=== PATIENT | female | born 1985 | race Caucasian/White ===

== ENCOUNTER 2017-05-21 00:01 | Inpatient (IN) | payer OTHER ==
[~2017-05-21] VITALS: Ht 167.6 cm; Wt 123.0 kg
[~2017-05-21 00:01] MED LIST: ACETAMINOPHEN325 M1 PO; CRANBERRY300 MG PO; FLAGYL500 MG PO; FLEXERIL10 MG PO; I-CAPS WITH LU1 EACH PO; METHOCARBAMOL500 MG PO; METROGEL60 GM TOP; METRONIDAZOLE500 MG PO; NAPROXEN500 MG PO; NORCO 5-325 TA1 EACH PO; PEPCID20 MG PO; PRENA1 CHEW TA1.4 MG PO; TENEX1 MG PO; ZOFRAN4 MG PO
--- NOTE | 2017-05-22 08:36 | PR ---
[facility] [address] [facility] [place] [address] Signed PP Progress Notes Datetime Report Generated by MALLY: 05/22/2017 08:36 SUBJECTIVE: [id number] Pain: Within normal limits Vital Signs: [id number] Vital Signs: Reviewed; Within Normal Limits EXAM: [id number] Cardiovascular: Not Done Respiratory: Not Done Abdomen/Uterus: Abnormal Lochia: Normal Vulva/Perineum: Not Done Breasts: Not Done CVA Tenderness: Not Done Extremities: Normal Incision: Not Applicable Progress: Normal Exam Comments: Fundus firm, NT @ U. H/H 12.4/35.9, WBC 13.4, plat 206k IMPRESSION/PLAN/PROCEDURES: [id number] Impression: Normal progression Plan: Continue present management Procedures: None Progress Notes: Doing well. Will continue current management. Signing Physician: Mine Emmanuel MD CC: *Electronically Signed* 05/22/17 0836 MINE EMMANUEL MD PATIENT NAME: MARK LEYVA PROGRESS NOTE DATE OF : 87 PHYSICIAN: MINE EMMANUEL MD RPT #: [id number] REPORT IS CONFIDENTIAL AND NOT TO BE RELEASED WITHOUT AUTHORIZATION
--- NOTE | 2017-05-23 09:40 | PR ---
[facility] [address] [facility] [place] [address] Signed PP Progress Notes Datetime Report Generated by CPN: 05/23/2017 09:39 SUBJECTIVE: [id number] Pain: Within normal limits Vital Signs: [id number] Vital Signs: Reviewed; Within Normal Limits EXAM: [id number] Cardiovascular: Not Done Respiratory: Not Done Abdomen/Uterus: Abnormal Lochia: Normal Vulva/Perineum: Not Done Breasts: Not Done CVA Tenderness: Not Done Extremities: Abnormal Incision: Not Applicable Progress: Normal Exam Comments: Fundus firm, NT @ U. 2+ LE edema. IMPRESSION/PLAN/PROCEDURES: [id number] Impression: Normal progression Plan: Discharge Procedures: None Progress Notes: Doing well. She is ready for D/C. Signing Physician: Mine Emmanuel MD CC: *Electronically Signed* 05/23/17 0939 MINE EMMANUEL MD PATIENT NAME: MARK LEYVA PROGRESS NOTE DATE OF : 87 PHYSICIAN: MINE EMMANUEL MD RPT #: [id number] REPORT IS CONFIDENTIAL AND NOT TO BE RELEASED WITHOUT AUTHORIZATION
== END 2017-05-23 12:50 | disposition home or self-care (01) | DRG 775 ==
LOC: FBC 00:01 → FBCO 05-27 10:12 → EDSTATUS 05-27 15:29
PROVIDERS: ADMIT Obstetrics & Gynecology
PROC: 10E0XZZ Delivery of Products of Conception, External Approach (ICD-10-PCS; principal; 2017-05-21)
PROC: 0KQM0ZZ Repair Perineum Muscle, Open Approach (ICD-10-PCS; 2017-05-21)
PROC: 10907ZC Drainage of Amniotic Fluid, Therapeutic from Products of Conception, Via Natural or Artificial Opening (ICD-10-PCS; 2017-05-21)
PROC: 0W8NXZZ Division of Female Perineum, External Approach (ICD-10-PCS; 2017-05-21)
PROC: 00HU33Z Insertion of Infusion Device into Spinal Canal, Percutaneous Approach (ICD-10-PCS; 2017-05-21)
PROC: 3E0R3CZ (ICD-10-PCS; 2017-05-21)
DX: O66.0 Obstructed labor due to shoulder dystocia (principal); O70.1 Second degree perineal laceration during delivery; O69.1XX0 Labor and delivery complicated by cord around neck, with compression, not applicable or unspecified; Z37.0 Single live birth; Z3A.39 39 weeks gestation of pregnancy; O99.214 Obesity complicating childbirth; E66.01 Morbid (severe) obesity due to excess calories
CPT/HCPCS: 01960; 36415; 82803; 85027; 87088; J1644; J2405; J2590; J2795; J3105; J7120

== ENCOUNTER 2017-09-14 19:19 | Emergency (ER) | payer OTHER ==
[~2017-09-14] VITALS: Ht 167.6 cm; Wt 121.1 kg
[2017-09-14] MEDS ORDERED: IBUPROFEN600 MG PO (19:43)
[2017-09-14] MEDS ORDERED: CELEXA20 MG PO (19:43)
== END 2017-09-14 21:10 | disposition home or self-care (01) ==
LOC: ED 19:19
DX: S70.312A Abrasion, left thigh, initial encounter (principal); F19.10 Other psychoactive substance abuse, uncomplicated; F32.9 Major depressive disorder, single episode, unspecified; F31.9 Bipolar disorder, unspecified; F43.10 Post-traumatic stress disorder, unspecified; F41.9 Anxiety disorder, unspecified; F17.200 Nicotine dependence, unspecified, uncomplicated; Z88.0 Allergy status to penicillin; X78.1XXA Intentional self-harm by knife, initial encounter
CPT/HCPCS: 80053; 80176; 81001; 84443; 84703; 85025; 87088; 99283; G0480

== ENCOUNTER 2018-03-28 16:16 | Emergency (ER) | payer OTHER ==
[~2018-03-28] VITALS: Ht 167.6 cm; Wt 121.1 kg
[~2018-03-28 16:16] MED LIST changes: +CELEXA20 MG PO; +IBUPROFEN600 MG PO
[2018-03-28] MEDS ORDERED: IMPLANON (16:27)
== END 2018-03-28 16:52 | disposition home or self-care (01) ==
LOC: ED 16:16
DX: J02.9 Acute pharyngitis, unspecified (principal)

== ENCOUNTER 2018-12-24 20:37 | Emergency (ER) | payer OTHER ==
[~2018-12-24] VITALS: Ht 167.6 cm; Wt 121.1 kg
--- OUTSIDE RECORDS SUMMARY | ~2018-12-24 | XMS | Clinical Summary ---
Demographics + + + | Address | [address] | | | [place] [address] | + + + | Home Phone | | + + + | Preferred Language | Unknown | + + + | Marital Status | Single | + + + | Alevism Affiliation | 1013 | + + + | Race | Unknown | + + + | Ethnic Group | Unknown | + + + Author + + + | Author | [facility] | | | and [place] | + + + | Organization | [facility] | | | and [place] | + + + | Address | Unknown | + + + | Phone | Unavailable | + + + Support + + + + + | Name | Relationship | Address | Phone | + + + + + | Lainey England | ECON | [address] | | | | | [place] | | | | | [address] | | + + + + + Care Team Providers + +------+ + | Care Zinc Plater Name | Role | Phone | + +------+ + | Niraj Billy | PP | Unavailable | + +------+ + Allergies + + + +--------+ + | Active Allergy | Reactions | Severity | Noted | Comments | | | | | Date | | + + + +--------+ + | Penicillins | Hives | | | | + + + +--------+ + Current Medications + + +-------+---------+------+------+-------+ | Prescription | Sig. | Disp. | Refills | Star | End | Statu | | | | | | t | Date | s | | | | | | Date | | | + + +-------+---------+------+------+-------+ | Levonorgestrel | by Intrauterine | | | | | Activ | | (MIRENA IU) | route. | | | | | e | + + +-------+---------+------+------+-------+ | fluticasone | Inhale 2 puffs into | | | | | Activ | | (FLOVENT HFA) 110 | the lungs 2 times | | | | | e | | mcg/puff inhaler | daily. | | | | | | + + +-------+---------+------+------+-------+ | albuterol | Inhale 1 puff into | | | | | Activ | | (VENTOLIN HFA) 90 | the lungs every 6 | | | | | e | | mcg/puff inhaler | hours as needed. | | | | | | + + +-------+---------+------+------+-------+ | methocarbamol | Take 750 mg by mouth | | | | | Activ | | (ROBAXIN) 750 mg | 3 times daily. | | | | | e | | tablet | | | | | | | + + +-------+---------+------+------+-------+ | Respiratory | by Does not apply | | | | | Activ | | Therapy Supplies | route. | | | | | e | | (NEBULIZER) JAIME | | | | | | | + + +-------+---------+------+------+-------+ | | Take 1 tablet by | | | | | Activ | | HYDROcodone-acetamin | mouth every 6 hours | | | | | e | | ophen (NORCO) 5-325 | as needed for Pain. | | | | | | | mg per tablet | | | | | | | + + +-------+---------+------+------+-------+ | albuterol (PROAIR | Inhale 2 puffs into | | | | | Activ | | HFA) 90 mcg/puff | the lungs EVERY 4 TO | | | | | e | | inhaler | 6 HOURS NEEDED | | | | | | | | for Wheezing. | | | | | | + + +-------+---------+------+------+-------+ | traZODone | Take 50 mg by mouth | | | | | Activ | | (DESYREL) 50 mg | nightly. | | | | | e | | tablet | | | | | | | + + +-------+---------+------+------+-------+ Active Problems + + + | Problem | Noted Date | + + + | Unspecified viral hepatitis C without hepatic coma | | + + + + + | Overview: ICD-10 Record update | + + + +---+ | Bipolar I disorder (HCC) | | + +---+ Family History + + +--------+ + | Medical History | Relation | Name | Comments | + + +--------+ + | Cancer | Father | | | + + +--------+ + | Hypertension | Father | | | + + +--------+ + | Ovarian cancer | Maternal | | | | | Grandmoth | | | | | er | | | + + +--------+ + | Asthma | Mother | | | + + +--------+ + | Other (see comment) | Mother | | Sleep apnea. Also: had twins with 1 dying | | | | | inutero. | + + +--------+ + | Breast cancer | Other | Great | | | | | MGM | | + + +--------+ + | Cancer | Paternal | | skin cancer | | | Grandmoth | | | | | er | | | + + +--------+ + | Heart disease | Sister | | heart problems during | + + +--------+ + | Other (see comment) | Sister | | sleep apnea | + + +--------+ + | Asthma | Sister | | | + + +--------+ + + + +--------+ + | Relation | Name | Status | Comments | + + +--------+ + | Father | | Alive | | + + +--------+ + | Maternal Grandmother | | | | + + +--------+ + | Mother | | Alive | | + + +--------+ + | Other | Great MGM | | | + + +--------+ + | Paternal Grandmother | | | | + + +--------+ + | Sister | | Alive | | + + +--------+ + | Sister | | | | + + +--------+ + Social History + +-------+ +--------+------+ | Tobacco Use | Types | Packs/Day | Years | Date | | | | | Used | | + +-------+ +--------+------+ | Former Smoker | | | | | + +-------+ +--------+------+ + +---+---+---+ | Smokeless Tobacco: | | | | | Never Used | | | | + +---+---+---+ + + | Comments: quit smoking for | + + + + +---------+ + | Alcohol Use | Drinks/We | oz/Week | Comments | | | ek | | | + + +---------+ + | No | | | quit one year ago | + + +---------+ + + + + | Sex Assigned at | Date Recorded | | | | + + + | Not on file | | + + + Last Filed Vital Signs + + + + | Vital Sign | Reading | Time Taken | + + + + | Blood Pressure | 114/74 | 11/29/20149 PST | + + + + | Pulse | 90 | 11/29/20149 PST | + + + + | Temperature | 36.7 C (98 F) | 11/29/20141138 PST | + + + + | Respiratory Rate | 16 | 11/29/20141138 PST | + + + + | Oxygen Saturation | - | - | + + + + | Inhaled Oxygen | - | - | | Concentration | | | + + + + | Weight | 112 kg (247 lb) | 11/29/20141138 PST | + + + + | Height | 165.1 cm (5' 5") | 11/29/20141138 PST | + + + + | Body Mass Index | 41.1 | 11/29/2014 1139 PST | + + + + Plan of Treatment + + + + + | Health Maintenance | Due Date | Last Done | Comments | + + + + + | Vaccine: | | | | | Dtap/Tdap/Td (1 - | 6 | | | | Tdap) | | | | + + + + + | Cervical Cancer | | | | | Screening (Pap) | 7 | | | + + + + + | Vaccine: Influenza | | | | | (#1) | 8 | | | + + + + + Results Not on filefrom Last 3 Months Insurance + +--------+ +--------+ +---------+ | Payer | Benefi | Subscriber | Type | Phone | Address | | | t Plan | ID | | | | | | / | | | | | | | Group | | | | | + +--------+ +--------+ +---------+ | [employer] | MODA | [id number] | Medica | +- | | | MEDICAID HMO | HEALTH | | id | [address]21 | | | | MDCD | | | | | | | [place]MO [place] | | | | | + +--------+ +--------+ +---------+ + +--------+ +--------+ + + | Guarantor Name | Accoun | Relation to | Date | Phone | Billing Address | | | t Type | Patient | of | | | | | | | | | | + +--------+ +--------+ + + | MARK ENGLAND | Person | Self [birth year] Home: | [address] | | [place] | stephanie/Paddy | | 1985 | [phone] | [place], | | | [place] | | | [address] | [place] [address] | + +--------+ +--------+ + +
--- OUTSIDE RECORDS SUMMARY | ~2018-12-24 | XMS | Clinical Summary ---
Demographics + + + | Address | [address] | | | [place] [address] | + + + | Home Phone | | + + + | Preferred Language | Unknown | + + + | Marital Status | Single | + + + | Anabaptism Affiliation | 1013 | + + + | Race | Unknown | + + + | Ethnic Group | Unknown | + + + Author + + + | Author | [facility] | | | and [place] | + + + | Organization | [facility] | | | [...] [place] | | | | | [address] | | + + + + + Care Team Providers + +------+ + | Care Change Management Manager Name | Role | Phone | + [...] | [employer] | MODA | [id number] | Medica | +- | | | [...] [place] | | | [address] | [place] [address] | + +--------+ +--------+ + +
[~2018-12-24 20:37] MED LIST changes: +IMPLANON
--- OUTSIDE RECORDS SUMMARY | 2018-12-24 20:40 | XMS ---
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 [facility] has contacted client and client has declined any services at this time. Please provide education to the patient on the scope and purpose of the ED as an acute care provider not a Primary Care Provider and should not be utilized for chronic conditions. Please refer client back to Community Health WorkerChelsey with [facility] at [phone] or [phone], if clientreturns to ED. E.D. VISIT COUNT (12 MO.) 2 [facility] TOTAL 2 NOTE: Visits indicate total known visits. ED/UCC VISIT TRACKING (12 MO.) 12/24/2018 20:37 [facility] [place] TYPE: Emergency COMPLAINT: - FINGER LAC 03/28/2018 16:17 [facility] [place] TYPE: Emergency COMPLAINT: - SORE THROAT DIAGNOSES: - Acute pharyngitis, unspecified INPATIENT VISIT TRACKING (12 MO.) No inpatient visits to display in this time frame [id number]
[2018-12-24] MEDS ORDERED: LATUDA40 MG PO (20:52)
== END 2018-12-24 21:49 | disposition home or self-care (01) ==
LOC: ED 20:37
DX: S61.012A Laceration without foreign body of left thumb without damage to nail, initial encounter (principal); W26.0XXA Contact with knife, initial encounter; F32.9 Major depressive disorder, single episode, unspecified; F31.9 Bipolar disorder, unspecified; F43.10 Post-traumatic stress disorder, unspecified; F17.200 Nicotine dependence, unspecified, uncomplicated; Z88.0 Allergy status to penicillin; Z79.899 Other long term (current) drug therapy
CPT/HCPCS: 12001; 99282-25

== ENCOUNTER 2019-03-21 18:07 | Emergency (ER) | payer OTHER ==
[~2019-03-21] VITALS: Ht 167.6 cm; Wt 138.3 kg
[~2019-03-21 18:07] MED LIST changes: +LATUDA40 MG PO
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
[2019-03-21] MEDS ORDERED: PARAGARD T 3801 EACH IY (18:24)
== END 2019-03-21 20:56 | disposition home or self-care (01) ==
LOC: ED 18:07
DX: N93.9 Abnormal uterine and vaginal bleeding, unspecified (principal); Z90.49 Acquired absence of other specified parts of digestive tract; Z88.0 Allergy status to penicillin
CPT/HCPCS: 80048; 81001; 84702; 85025; 96361; 96374; 99284-25; J1885; J7030

== ENCOUNTER 2021-01-12 17:12 | Emergency (ER) | payer OTHER ==
[~2021-01-12] VITALS: Ht 167.6 cm; Wt 133.8 kg
[~2021-01-12 17:12] MED LIST changes: +HYDROXYZINE HCL25 MG PO; +PARAGARD T 3801 EACH IY
--- OUTSIDE RECORDS SUMMARY | 2021-01-12 17:16 | XMS ---
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 E.D. VISIT COUNT (12 MO.) [address] [place] [address] TOTAL 1 NOTE: Visits indicate total known visits. ED/UCC VISIT TRACKING (12 MO.) 01/12/2021 17:14 [facility] [place] TYPE: Emergency COMPLAINT: - SWOLLEN FEET, NUMBNESS INPATIENT VISIT TRACKING (12 MO.) No inpatient visits to display in this time frame [email or web address]
[2021-01-12] MEDS ORDERED: METHOCARBAMOL750 MG PO (17:29)
[2021-01-12] MEDS ORDERED: LASIX20 MG PO (18:26)
[2021-01-12] MEDS ORDERED: K-TAB ER20 MEQ PO (18:26)
[2021-01-12] MEDS ORDERED: MAGNESIUM250 MG PO (18:26)
== END 2021-01-12 18:38 | disposition home or self-care (01) ==
LOC: ED 17:12
DX: R60.0 Localized edema (principal); F17.200 Nicotine dependence, unspecified, uncomplicated; Z88.0 Allergy status to penicillin; Z79.899 Other long term (current) drug therapy
CPT/HCPCS: 80053; 83735; 85025; 99284

== ENCOUNTER 2021-04-30 17:11 | Emergency (ER) | payer OTHER ==
[~2021-04-30] VITALS: Ht 167.6 cm; Wt 127.0 kg
[~2021-04-30 17:11] MED LIST changes: +K-TAB ER20 MEQ PO; +LASIX20 MG PO; +MAGNESIUM250 MG PO; +METHOCARBAMOL750 MG PO
--- NOTE | 2021-05-03 08:59 | EKG ---
[facility] [address] [facility] [place], [place] [address] Signed Normal sinus rhythm Normal ECG No previous ECGs available Confirmed by SHILO MINOR MD ([id number]) on 05/03/2021 8:59:10 AM Electronically Signed By: SHILO MINOR MD 05/03/21 0859 PATIENT NAME: MARK LEYVA Electrocardiogram DATE OF : 87 PHYSICIAN: SHILO MINOR MD REPORT #: [id number] REPORT IS CONFIDENTIAL AND NOT TO BE RELEASED WITHOUT AUTHORIZATION
== END 2021-04-30 19:33 | disposition left against medical advice (07) ==
LOC: ED 17:11
DX: Z53.21 Procedure and treatment not carried out due to patient leaving prior to being seen by health care provider (principal)
CPT/HCPCS: 93005; 93010

== ENCOUNTER 2021-05-02 02:48 | Emergency (ER) | payer OTHER ==
[~2021-05-02] VITALS: Ht 167.6 cm; Wt 122.5 kg
--- OUTSIDE RECORDS SUMMARY | 2021-05-02 02:50 | XMS ---
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 CRITERIA MET - [facility] - 2 Visits in 30 Days CARE PROVIDERS KAYLI FUNK [facility] Current PHONE: [phone] ESEQUIEL LONGORIA Physician 02/27/2021-Current PHONE: [phone] Care Guidelines exist for the following facilities: [employer] [facility] ( 11/11/2020 ) [facility] ( 04/03/2019 ) [facility] VISIT COUNT (12 MO.) [address] [facility] [place] TOTAL 4 NOTE: Visits indicate total known visits. ED/UCC VISIT TRACKING (12 MO.) 05/02/2021 02:49 [facility] [place] TYPE: Emergency COMPLAINT: - CHEST PAIN 04/30/2021 17:11 [facility] [place] TYPE: Emergency COMPLAINT: - CHEST PAIN/RIGHT ARM PAIN 02/27/2021 01:40 [facility] [place] TYPE: Emergency COMPLAINT: - HEAD PAIN 01/12/2021 17:14 [facility] [place] TYPE: Emergency COMPLAINT: - SWOLLEN FEET, NUMBNESS DIAGNOSES: - Allergy status to penicillin - Nicotine dependence, unspecified, uncomplicated - Localized edema - Other detention (current) drug therapy INPATIENT VISIT TRACKING (12 MO.) No inpatient visits to display in this time frame [email or web address]
--- NOTE | 2021-05-03 09:00 | EKG ---
[facility] [address] [place], [place] [address] Signed Normal sinus rhythm Normal ECG When compared with ECG of 30-APR-2021 17:23, (Unconfirmed) No significant change was found Confirmed by SHILO MINOR MD ([id number]) on 05/03/2021 9:00:10 AM Electronically Signed By: SHILO MINOR MD 05/03/21 0900 PATIENT NAME: MARK LEYVA Electrocardiogram DATE OF : 87 PHYSICIAN: SHILO MINOR MD REPORT #: [id number] REPORT IS CONFIDENTIAL AND NOT TO BE RELEASED WITHOUT AUTHORIZATION
== END 2021-05-02 05:57 | disposition home or self-care (01) ==
LOC: ED 02:48
DX: R07.89 Other chest pain (principal); F19.90 Other psychoactive substance use, unspecified, uncomplicated; R20.2 Paresthesia of skin; Z87.891 Personal history of nicotine dependence; Z88.0 Allergy status to penicillin; Z79.899 Other long term (current) drug therapy
CPT/HCPCS: 71045; 80053; 81001; 83735; 84443; 84484; 85025; 93005; 93010; 96374; 99285-25; J1200

== ENCOUNTER 2021-12-07 09:44 | Emergency (ER) | payer OTHER ==
[~2021-12-07] VITALS: Ht 167.6 cm; Wt 122.9 kg
--- OUTSIDE RECORDS SUMMARY | 2021-12-07 09:48 | XMS ---
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 CRITERIA MET - [facility] CARE PROVIDERS MARK MICHELE Physician Current PHONE: Unknown BLESSING [facility] Current PHONE: [phone] ESEQUIEL LONGORIA Physician 02/27/2021-Current PHONE: [phone] Care Guidelines exist for the following facilities: [facility] ( 11/11/2020 ) [facility] ( 04/03/2019 ) Care History Medical/Surgical 05/14/2021 [facility] PLEASE CONTACT WILDER - IF PATIENT IS WILLING TO TALK ABOUT RESOURCES AND OR HELP IN REGARDS TO SUBSTANCE USE. \T\nbsp;\T\nbsp;\T\nbsp;\T\nbsp;\T\nbsp;\T\ nbsp;\T\nbsp;\T\nbsp;\T\nbsp;\T\nbsp;\T\nbsp;\T\nbsp;\T\nbsp;\T\nbsp;\T\nbsp;\ T\nbsp;\T\nbsp;\T\nbsp;\T\nbsp;\T\nbsp;\T\nbsp;\T\nbsp;\T\nbsp;\T\nbsp;\T\nbsp; \T\nbsp;\T\nbsp;\T\nbsp;\T\nbsp;\T\nbsp;\T\nbsp;\T\nbsp;\T\nbsp;\T\nbsp;\T\ nbsp;\T\nbsp;\T\nbsp; WILDER CONTACT NUMBER: [phone] E.D. VISIT COUNT (12 MO.) [address] [place] [address] David 1 [facility] 6 [facility] [place] TOTAL 8 NOTE: Visits indicate total known visits. ED/UCC VISIT TRACKING (12 MO.) 12/07/2021 09:46 [facility] [address] [facility] [place] TYPE: Emergency COMPLAINT: - LEG PAIN 06/23/2021 19:38 [facility] [place] TYPE: Emergency DIAGNOSES: - Complete or unspecified spontaneous without complication - ABD PAIN - Abnormal uterine and vaginal bleeding, unspecified 06/23/2021 16:57 [facility] [place] TYPE: Emergency COMPLAINT: - ABDOMINAL PAIN 05/04/2021 21:34 [facility] [place] . 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 - Allergy status to penicillin - Other psychoactive substance use, unspecified, uncomplicated - Other chest pain 04/30/2021 17:11 [facility] [place] TYPE: Emergency COMPLAINT: - CHEST PAIN/RIGHT ARM PAIN DIAGNOSES: - Procedure and treatment not carried out due to patient leaving prior to being seen by health care provider 02/27/2021 01:40 [facility] [place] TYPE: Emergency COMPLAINT: - HEAD PAIN 01/12/2021 17:14 [facility] [place] TYPE: Emergency COMPLAINT: - SWOLLEN FEET, NUMBNESS DIAGNOSES: - Allergy status to penicillin - Nicotine dependence, unspecified, uncomplicated - Localized edema - Other terminal operations manager (current) drug therapy INPATIENT VISIT TRACKING (12 MO.) No inpatient visits to display in this time frame [email or web address]
[2021-12-07] MEDS ORDERED: GABAPENTIN300 MG PO (10:03)
== END 2021-12-07 11:24 | disposition home or self-care (01) ==
LOC: ED 09:44
DX: S80.12XA Contusion of left lower leg, initial encounter (principal); Z87.891 Personal history of nicotine dependence; Z88.0 Allergy status to penicillin; Z91.040 Latex allergy status; Z79.899 Other long term (current) drug therapy
CPT/HCPCS: 93971; 99283-25

== ENCOUNTER 2022-01-06 20:31 | Emergency (ER) | payer OTHER ==
[~2022-01-06] VITALS: Ht 167.6 cm; Wt 123.0 kg
[~2022-01-06 20:31] MED LIST changes: +GABAPENTIN300 MG PO
--- OUTSIDE RECORDS SUMMARY | 2022-01-06 20:34 | XMS ---
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 06/23/2021 16:57 - Other Details: PATIENT LWBS Elopement at [facility] 04/30/2021 17:11 - Other Details: PATIENT LWBS Elopement at [facility] 02/27/2021 01:40 - Other Details: PATIENT LWBS. CRITERIA MET - [facility] - 2 Visits in 30 Days - [facility] CARE PROVIDERS MARK MICHELE Physician Current PHONE: Unknown BLESSING [facility] Current PHONE: [phone] ESEQUIEL LONGORIA Physician Curb Setter 02/27/2021-Current PHONE: [phone] Care Guidelines exist for the following facilities: [employer] [place] ( 11/11/2020 ) [employer] ( 04/03/2019 ) Care History Medical/Surgical 05/14/2021 [facility] PLEASE CONTACT WILDER - IF PATIENT IS WILLING TO TALK ABOUT RESOURCES AND OR HELP IN REGARDS TO SUBSTANCE USE. \T\nbsp;\T\nbsp;\T\nbsp;\T\nbsp;\T\nbsp;\T\ nbsp;\T\nbsp;\T\nbsp;\T\nbsp;\T\nbsp;\T\nbsp;\T\nbsp;\T\nbsp;\T\nbsp;\T\nbsp;\ T\nbsp;\T\nbsp;\T\nbsp;\T\nbsp;\T\nbsp;\T\nbsp;\T\nbsp;\T\nbsp;\T\nbsp;\T\nbsp; \T\nbsp;\T\nbsp;\T\nbsp;\T\nbsp;\T\nbsp;\T\nbsp;\T\nbsp;\T\nbsp;\T\nbsp;\T\ nbsp;\T\nbsp;\T\nbsp; WILDER CONTACT NUMBER: [phone] E.D. VISIT COUNT (12 MO.) 1 [facility] H. 1 [facility] [address] [facility] [address] [facility] [place] TOTAL 9 NOTE: Visits indicate total known visits. 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 - Latex allergy status - Personal history of nicotine dependence 06/23/2021 19:38 [facility] [place] TYPE: Emergency DIAGNOSES: - Complete or unspecified spontaneous without complication - ABD PAIN - Abnormal uterine and vaginal bleeding, unspecified 06/23/2021 16:57 [facility] [place] TYPE: Emergency COMPLAINT: - ABDOMINAL PAIN 05/04/2021 21:34 [facility] TYPE: Emergency COMPLAINT: - Possible allergic reaction DIAGNOSES: - Possible allergic reaction - Medical Screening - Allergy, unspecified, initial encounter 05/02/2021 02:49 [facility] [place] TYPE: Emergency COMPLAINT: - CHEST PAIN DIAGNOSES: - Personal history of nicotine dependence - Paresthesia of skin - Other mcfp (current) drug therapy - Allergy status to [...] unspecified, uncomplicated - Localized edema - Other mcfp (current) drug therapy INPATIENT VISIT TRACKING (12 MO.) No inpatient visits to display in this time frame [id number]
== END 2022-01-06 21:20 | disposition home or self-care (01) ==
LOC: ED 20:31
DX: R13.10 Dysphagia, unspecified (principal); F43.10 Post-traumatic stress disorder, unspecified; Z87.891 Personal history of nicotine dependence; Z88.0 Allergy status to penicillin; Z91.040 Latex allergy status; Z79.899 Other long term (current) drug therapy
CPT/HCPCS: 99283

== ENCOUNTER 2023-04-04 21:50 | Emergency (ER) | payer OTHER ==
[~2023-04-04] VITALS: Ht 167.6 cm; Wt 116.5 kg
--- OUTSIDE RECORDS SUMMARY | ~2023-04-04 | XMS | Continuity of Care Document ---
Demographics + + + | Address | [address] | | | [place] [address] | + + + | Preferred Language | Unknown | + + + | Marital Status | Never | + + + | Catholic Affiliation | Unknown | + + + | Race | White | + + + | Ethnic Group | Not or | + + + Author + + + | Author | [facility] | + + + | Organization | [facility] | + + + | Address | [address] [facility] | | | [place] [address] | + + + | Phone | | + + + Care Team Providers + + + + | Care Loft Worker Name | Role | Phone | + + + + Unavailable | Unavailable | + + + + Unavailable | Unavailable | + + + + Allergies and Intolerances + + + + + | date | description | facility | type | + + + + + | (no date) | Urticaria | [facility] (unknown[facility] | | [facility] | | + + + + + | (no date) | latex | [facility] | (unknown) | | | | [facility] | | + + + + + | (no date) | Mild | [facility] | (unknown) | | | | Hospital | | + + + + + | (no date) | Rash | [facility] | (unknown) | | | | Hospital | | + + + + + Encounters No information. Functional Status No information. Immunizations No information. Medications + + + + | date | description | facility | + + + + | 2022-04-21 00:00 | LURASIDONE HCL | [facility] | + + + + | 2014-06-03 00:00 | FAMOTIDINE | [facility] | + + + + | 2014-06-03 00:00 | ONDANSETRON HCL | [facility] | + + + + | 2021-01-12 00:00 | POTASSIUM CHLORIDE | [facility] | + + + + | 2022-04-21 00:00 | IBUPROFEN | [facility] | + + + + | 2022-04-21 00:00 | METHOCARBAMOL | [facility] | + + + + | 2022-04-21 00:00 | METHOCARBAMOL | [facility] | + + + + | 2013-07-15 00:00 | NAPROXEN | [facility] | + + + + | 2021-01-12 00:00 | FUROSEMIDE | [facility] | + + + + | 2022-04-21 00:00 | GUANFACINE HCL | [facility] | + + + + | 2022-04-21 00:00 | METRONIDAZOLE | [facility] | + + + + | 2022-04-21 00:00 | CITALOPRAM HYDROBROMIDE | [facility] | + + + + | 2022-04-21 00:00 | | [facility] | | | BUTALB/ACETAMINOPHEN/CAFFEI | | | | NE | | + + + + | 2022-04-21 00:00 | CRANBERRY EXTRACT | [facility] | + + + + | 2022-04-21 00:00 | GABAPENTIN | [facility] | + + + + | 2021-01-12 00:00 | MAGNESIUM OXIDE | [facility] | + + + + | 2022-04-21 00:00 | METRONIDAZOLE | [facility] | + + + + | 2022-04-21 00:00 | ACETAMINOPHEN | [facility] | + + + + | 2022-04-21 00:00 | METRONIDAZOLE | [facility] | + + + + | 2013-03-12 00:00 | HYDROCODONE | [facility] | | | BIT/ACETAMINOPHEN | | + + + + | 2013-10-08 00:00 | HYDROCODONE | [facility] | | | BIT/ACETAMINOPHEN | | + + + + | 2022-04-21 00:00 | hydrOXYzine HCL | [facility] | + + + + Problems + + + + | date | description | facility | + + + + | 2014-06-03 00:00 | Vomiting and diarrhea | [facility] | + + + + | 2015-05-01 00:00 | Back pain | [facility] | + + + + | 2016-11-14 00:00 | at early stage | [facility] | + + + + | 2017-09-14 00:00 | Polysubstance abuse | [facility] | + + + + | 2017-09-14 00:00 | Self-harm | [facility] | + + + + | 2018-03-28 00:00 | Encounter for medical | [facility] | | | screening examination | | + + + + | 2019-03-21 00:00 | Vaginal bleeding | [facility] | + + + + | 2019-04-16 00:00 | Abdominal pain | [facility] | + + + + | 2021-02-27 00:00 | Patient left without being | [facility] | | | seen | | + + + + | 2021-05-02 00:00 | Paresthesia | [facility] | + + + + | 2021-05-24 00:00 | Stimulant use disorder | [facility] | + + + + | 2021-05-24 00:00 | Chest pain | [facility] | + + + + | 2022-01-06 00:00 | Dysphagia | [facility] | + + + + | 2022-04-21 00:00 | Headache | [facility] | + + + + Procedures No information. Results/Labs No information. Social History No information. Vital Signs + + + +---------+ | date | measurement | value | units | + + + +---------+ | 2021-12-07 00:00 | BMI | 43.7 | kg/m2 | + + + +---------+ | 2021-12-07 00:00 | BP_diastolic | 70 | mmHg | + + + +---------+ | 2021-12-07 00:00 | BP_systolic | 111 | mmHg | + + + +---------+ | 2021-12-07 00:00 | heart_rate | 92 | /min | + + + +---------+ | 2021-12-07 00:00 | height_metric | 167.64 | cm | + + + +---------+ | 2021-12-07 00:00 | height_standard | 66 | in | + + + +---------+ | 2021-12-07 00:00 | o2_saturation | 99 | % | + + + +---------+ | 2021-12-07 00:00 | respiration_rate | 16 | /min | + + + +---------+ | 2021-12-07 00:00 | temperature_metric | 36.78 | C | | | | | | + + + +---------+ | 2021-12-07 00:00 | | 98.2 | F | | | temperature_standar | | | | | d | | | + + + +---------+ | 2021-12-07 00:00 | weight_metric | 122.92 | kg | + + + +---------+ | 2021-12-07 00:00 | weight_standard | 270.99 | lb | + + + +---------+ | 2021-12-07 00:00 | weight_standard | 271 | lb | + + + +---------+ | 2022-01-06 00:00 | BMI | 43.8 | kg/m2 | + + + +---------+ | 2022-01-06 00:00 | BP_diastolic | 89 | mmHg | + + + +---------+ | 2022-01-06 00:00 | BP_systolic | 116 | mmHg | + + + +---------+ | 2022-01-06 00:00 | heart_rate | 103 | /min | + + + +---------+ | 2022-01-06 00:00 | height_metric | 167.64 | cm | + + + +---------+ | 2022-01-06 00:00 | height_standard | 66 | in | + + + +---------+ | 2022-01-06 00:00 | o2_saturation | 98 | % | + + + +---------+ | 2022-01-06 00:00 | respiration_rate | 20 | /min | + + + +---------+ | 2022-01-06 00:00 | temperature_metric | 36.56 | C | | | | | | + + + +---------+ | 2022-01-06 00:00 | | 97.8 | F | | | temperature_standar | | | | | d | | | + + + +---------+ | 2022-01-06 00:00 | weight_metric | 123 | kg | + + + +---------+ | 2022-01-06 00:00 | weight_standard | 271.17 | lb | + + + +---------+ | 2022-04-20 00:00 | BMI | 42.9 | kg/m2 | + + + +---------+ | 2022-04-20 00:00 | height_metric | 167.64 | cm | + + + +---------+ | 2022-04-20 00:00 | height_standard | 66 | in | + + + +---------+ | 2022-04-20 00:00 | weight_metric | 120.5 | kg | + + + +---------+ | 2022-04-20 00:00 | weight_standard | 265.66 | lb | + + + +---------+ | 2022-04-21 00:00 | BP_diastolic | 78 | mmHg | + + + +---------+ | 2022-04-21 00:00 | BP_systolic | 120 | mmHg | + + + +---------+ | 2022-04-21 00:00 | heart_rate | 77 | /min | + + + +---------+ | 2022-04-21 00:00 | o2_saturation | 100 | % | + + + +---------+ | 2022-04-21 00:00 | respiration_rate | 16 | /min | + + + +---------+ | 2022-04-21 00:00 | temperature_metric | 36.61 | C | | | | | | + + + +---------+ | 2022-04-21 00:00 | | 97.9 | F | | | temperature_standar | | | | | d | | | + + + +---------+"
--- OUTSIDE RECORDS SUMMARY | ~2023-04-04 | XMS | Continuity of Care Document ---
Demographics + + + | Address | [address] | | | [place] [address] | + + + | Preferred Language | Unknown | + + + | Marital Status | Never | + + + | Advent Affiliation | Unknown | + + + | Race | White | + + + | Ethnic Group | Not or | + + + Author + + + | Author | [facility] | + + + | Organization | [facility] | + + + | Address | [address] [facility] | | | [place] [address] | + + + | Phone | | + + + Care Team Providers + + + + | Care Monitoring Analyst Name | Role | Phone | + + + + Unavailable | Unavailable | + + + + Unavailable | Unavailable | + + + + Allergies and Intolerances + + + + + | date | description | facility | type | + + + + + | (no date) | Urticaria | [facility] | (unknown) | | | | [facility] | | + + + + + | (no date) | latex | [facility] | (unknown) | | | | Hospital | | + + + + + | (no date) | Mild | [facility] | (unknown) | | | | Hospital | | + + + + + | (no date) | Rash | [facility] | (unknown) | | | | Hospital | | + + + + + Encounters No information. Functional Status No information. Immunizations No information. Medications + + + + | date | description | facility | + + + + | 2022-04-21 00:00 | LURASIDONE HCL | [facility] | + + + + | 2014-06-03 00:00 | FAMOTIDINE | [facility] | + + + + | 2014-06-03 00:00 | ONDANSETRON HCL | [facility] | + + + + | 2021-01-12 00:00 | POTASSIUM CHLORIDE | [facility] | + + + + | 2022-04-21 00:00 | IBUPROFEN | [facility] | + + + + | 2022-04-21 00:00 | METHOCARBAMOL | [facility] | + + + + | 2022-04-21 00:00 | METHOCARBAMOL | [facility] | + + + + | 2013-07-15 00:00 | NAPROXEN | [facility] | + + + + | 2021-01-12 00:00 | FUROSEMIDE | [facility] | + + + + | 2022-04-21 00:00 | GUANFACINE HCL | [facility] | + + + + | 2022-04-21 00:00 | METRONIDAZOLE | [facility] | + + + + | 2022-04-21 00:00 | CITALOPRAM HYDROBROMIDE | [facility] | + + + + | 2022-04-21 00:00 | | [facility] | | | BUTALB/ACETAMINOPHEN/CAFFEI | | | | NE | | + + + + | 2022-04-21 00:00 | CRANBERRY EXTRACT | [facility] | + + + + | 2022-04-21 00:00 | GABAPENTIN | [facility] | + + + + | 2021-01-12 00:00 | MAGNESIUM OXIDE | [facility] | + + + + | 2022-04-21 00:00 | METRONIDAZOLE | [facility] | + + + + | 2022-04-21 00:00 | ACETAMINOPHEN | [facility] | + + + + | 2022-04-21 00:00 | METRONIDAZOLE | [facility] | + + + + | 2013-03-12 00:00 | HYDROCODONE | [facility] | | | BIT/ACETAMINOPHEN | | + + + + | 2013-10-08 00:00 | HYDROCODONE | [facility] | | | BIT/ACETAMINOPHEN | | + + + + | 2022-04-21 00:00 | hydrOXYzine HCL | [facility] | + + + + Problems + + + + | date | description | facility | + + + + | 2014-06-03 00:00 | Vomiting and diarrhea | [facility] | + + + + | 2015-05-01 00:00 | Back pain | [facility] | + + + + | 2016-11-14 00:00 | at early stage | [facility] | + + + + | 2017-09-14 00:00 | Polysubstance abuse | [facility] | + + + + | 2017-09-14 00:00 | Self-harm | [facility] | + + + + | 2018-03-28 00:00 | Encounter for medical | [facility] | | | screening examination | | + + + + | 2019-03-21 00:00 | Vaginal bleeding | [facility] | + + + + | 2019-04-16 00:00 | Abdominal pain | [facility] | + + + + | 2021-02-27 00:00 | Patient left without being | [facility] | | | seen | | + + + + | 2021-05-02 00:00 | Paresthesia | [facility] | + + + + | 2021-05-24 00:00 | Stimulant use disorder | [facility] | + + + + | 2021-05-24 00:00 | Chest pain | [facility] | + + + + | 2022-01-06 00:00 | Dysphagia | [facility] | + + + + | 2022-04-21 00:00 | Headache | [facility] | + + + + Procedures [...]
[~2023-04-04 21:50] MED LIST changes: +BUTALB-ACETAMI1 EACH PO
[2023-04-05] MEDS ORDERED: DOXYCYCLINE HY100 MG PO (01:16)
[2023-04-05 01:35] VITALS: BP 111/90
== END 2023-04-05 01:35 | disposition home or self-care (01) ==
LOC: ED 21:50
DX: N39.0 Urinary tract infection, site not specified (principal); Z87.891 Personal history of nicotine dependence; Z88.0 Allergy status to penicillin; Z91.040 Latex allergy status; Z79.899 Other long term (current) drug therapy
CPT/HCPCS: 36415; 80053; 81001; 84703; 85025; 87210; 87591; 99283

== ENCOUNTER 2023-10-15 16:17 | Emergency (ER) | payer OTHER ==
[~2023-10-15] VITALS: Ht 167.6 cm; Wt 125.9 kg
[~2023-10-15 16:17] MED LIST changes: +DOXYCYCLINE HY100 MG PO
[2023-10-15 16:44] LABS: BASOPHILS 1.3 % (0-2); EOSINOPHILS 1.6 % (0-6); HEMOGLOBIN 15.4 g/dL (12.0-18.0); LYMPHOCYTES 36.5 % (24-44); MCHC 33.5 g/dl (30-36); MCV 89.4 fl (81-99); MONOCYTES 8.6 % (0-12); PLATELET COUNT 396 K/uL (140-440); RBC 5.14 M/ul (4.3-5.7); RDW 13.1 (10.5-15.0)
[2023-10-15 16:56] LABS: ALBUMIN/GLOBULIN RATIO 0.87 (1.1-2.4); ANION GAP 16.7 (7-21); BILIRUBIN, TOTAL 0.8 ng/dL (0.2-1.0); BUN/CREATININE RATIO 15.78 (6.0-28.6); CALCIUM 9.2 mg/dL (8.5-10.1); CREATININE, SERUM 0.95 mg/dL (0.55-1.02); MAGNESIUM 1.8 mg/dL (1.8-2.4); POTASSIUM 3.7 mmol/L (3.5-5.1); PROTEIN, TOTAL 8.6 g/dL (6.4-8.2)
[2023-10-15 17:42] VITALS: BP 107/72
--- NOTE | 2023-10-16 09:16 | EKG ---
[facility] [address] [facility] [place] [address] Signed Sinus tachycardia Septal infarct , age undetermined Abnormal ECG When compared with ECG of 02-MAY-2021 02:57, Septal infarct is now present Nonspecific T wave abnormality now evident in Lateral leads Confirmed by IRIS PASCUAL MD ([id number]) on 10/16/2023 9:15:53 AM Electronically Signed By: IRIS PASCUAL 10/16/23 0916 PATIENT NAME: MARK SIEGEL Electrocardiogram DATE OF : 87 PHYSICIAN: IRIS PASCUAL REPORT #: [id number] REPORT IS CONFIDENTIAL AND NOT TO BE RELEASED WITHOUT AUTHORIZATION
== END 2023-10-15 17:43 | disposition home or self-care (01) ==
LOC: ED 16:17
PROVIDERS: Emergency Medicine
DX: R07.89 Other chest pain (principal); Z87.891 Personal history of nicotine dependence; Z88.0 Allergy status to penicillin; Z91.040 Latex allergy status
CPT/HCPCS: 36415; 71045; 80053; 83735; 84484; 84703; 85025; 85379; 93005; 93010; 96374; 96375; 99285-25; J1885; J2405

== ENCOUNTER 2023-10-22 16:40 | Emergency (ER) | payer OTHER ==
[~2023-10-22] VITALS: Ht 167.6 cm; Wt 125.6 kg
[2023-10-22 18:15] VITALS: BP 125/90
== END 2023-10-22 18:15 | disposition home or self-care (01) ==
LOC: ED 16:40
DX: S09.90XA Unspecified injury of head, initial encounter (principal); Y04.2XXA Assault by strike against or bumped into by another person, initial encounter; Z87.891 Personal history of nicotine dependence; Z88.0 Allergy status to penicillin; Z91.040 Latex allergy status; Z79.899 Other long term (current) drug therapy
CPT/HCPCS: 99284

== ENCOUNTER 2024-04-12 04:13 | Emergency (ER) | payer OTHER ==
[~2024-04-12] VITALS: Ht 167.6 cm; Wt 105.0 kg
[~2024-04-12 04:13] MED LIST changes: +TAMIFLU75 MG PO
[2024-04-12] MEDS ORDERED: TETRACAINE HCL 0.5% 4 ML BTL OS SCH (04:30)
[2024-04-12] MEDS ORDERED: CIPROFLOXACIN 0.3% 5 ML HOME.PACK OPTH ONE (05:15)
[2024-04-12 05:27] VITALS: BP 147/87
== END 2024-04-12 05:28 | disposition home or self-care (01) ==
LOC: ED 04:13
DX: H10.9 Unspecified conjunctivitis (principal); S05.02XA Injury of conjunctiva and corneal abrasion without foreign body, left eye, initial encounter; X58.XXXA Exposure to other specified factors, initial encounter; Z87.891 Personal history of nicotine dependence; Z88.0 Allergy status to penicillin; Z91.040 Latex allergy status; Z79.899 Other long term (current) drug therapy

== ENCOUNTER 2025-02-14 12:03 | Emergency (ER) | payer OTHER ==
[~2025-02-14] VITALS: Ht 167.6 cm; Wt 144.7 kg
[2025-02-14] MEDS ORDERED: GABAPENTIN 300 MG CAP PO ONE (13:00)
[2025-02-14] MEDS ORDERED: GABAPENTIN100 MG PO (13:05)
[2025-02-14 13:10] VITALS: BP 130/108
--- NOTE | 2025-02-15 08:26 | EKG ---
[facility] [address] [facility] [place] [address] Signed Normal sinus rhythm Normal ECG When compared with ECG of 15-OCT-2023 16:23, Criteria for Septal infarct are no longer present Confirmed by Carlos Enrique Champion MD ([id number]) on 02/15/2025 8:26:26 AM Electronically Signed By: CARLOS ENRIQUE CHAMPION MD 02/15/25 0826 PATIENT NAME: MARK LEYVA Electrocardiogram DATE OF : 87 PHYSICIAN: CARLOS ENRIQUE CHAMPION MD REPORT #: [id number] REPORT IS CONFIDENTIAL AND NOT TO BE RELEASED WITHOUT AUTHORIZATION
[2025-02-15] MEDS ORDERED: CLINDAMYCIN HC300 MG PO (22:02)
== END 2025-02-14 13:10 | disposition home or self-care (01) ==
LOC: ED 12:03
DX: G56.22 Lesion of ulnar nerve, left upper limb (principal); R60.0 Localized edema; F43.10 Post-traumatic stress disorder, unspecified; Z87.891 Personal history of nicotine dependence; Z88.0 Allergy status to penicillin; Z91.040 Latex allergy status
CPT/HCPCS: 93005; 93010; 99283; A9270

== ENCOUNTER 2025-02-15 20:57 | Emergency (ER) | payer OTHER ==
[~2025-02-15] VITALS: Ht 167.6 cm; Wt 144.7 kg
[~2025-02-15 20:57] MED LIST changes: +GABAPENTIN100 MG PO
[2025-02-15] MEDS ORDERED: CLINDAMYCIN HC300 MG PO (22:02)
[2025-02-15] MEDS ORDERED: HYDROCODONE BIT/ACETAMINOPHEN 5/325 MG 1 TAB HOME.PACK PO ONE (22:15)
[2025-02-15] MEDS ORDERED: DIPHTH,PERTUSS(ACELL),TET VAC 0.5 ML SYRINGE IM ONE (22:15)
[2025-02-15] MEDS ORDERED: clindamycin HCL 300 MG HOME.PACK PO ONE (22:15)
[2025-02-15 22:40] VITALS: BP 135/75
== END 2025-02-15 22:41 | disposition home or self-care (01) ==
LOC: ED 20:57
DX: S91.332A Puncture wound without foreign body, left foot, initial encounter (principal); F43.10 Post-traumatic stress disorder, unspecified; Z87.891 Personal history of nicotine dependence; Z88.0 Allergy status to penicillin; Z91.040 Latex allergy status; Z79.899 Other long term (current) drug therapy; W18.31XA Fall on same level due to stepping on an object, initial encounter
CPT/HCPCS: 73630; 90471; 99283-25; A9270

== ENCOUNTER 2025-03-04 02:00 | Emergency (ER) | payer OTHER ==
[~2025-03-04] VITALS: Ht 167.6 cm; Wt 111.2 kg
[~2025-03-04 02:00] MED LIST changes: +CLINDAMYCIN HC300 MG PO
[2025-03-04] MEDS ORDERED: BACTRIM DS TAB1 EACH PO (02:19)
[2025-03-04] MEDS ORDERED: TRIMETHOPRIM/SULFAMETHOXAZOLE 1 EA HOME.PACK PO ONE (02:30)
[2025-03-04 02:47] VITALS: BP 139/102
== END 2025-03-04 02:45 | disposition home or self-care (01) ==
LOC: ED 02:00
DX: S81.851A Open bite, right lower leg, initial encounter (principal); F43.10 Post-traumatic stress disorder, unspecified; W55.01XA Bitten by cat, initial encounter; Z79.899 Other long term (current) drug therapy; Z88.0 Allergy status to penicillin; Z91.040 Latex allergy status; Z87.891 Personal history of nicotine dependence
CPT/HCPCS: 99283; A9270

== ENCOUNTER 2025-03-15 23:50 | Emergency (ER) | payer OTHER ==
[~2025-03-15] VITALS: Ht 167.6 cm; Wt 146.0 kg
[~2025-03-15 23:50] MED LIST changes: +BACTRIM DS TAB1 EACH PO
[2025-03-16 00:08] LABS: BASOPHILS 0.7 % (0.1-1.2); EOSINOPHILS 3.4 % (0.7-5.8); HEMATOCRIT 40.1 % (34.1-44.9); HEMOGLOBIN 13.4 g/dL (11.2-15.7); LYMPHOCYTES 42.8 % (19.3-51.7); MCH 29.8 PG (25.6-32.2); MCHC 33.4 g/dL (32.2-35.5); MCV 89.1 fL (79.4-94.8); MONOCYTES 7.7 % (4.7-12.5); PLATELET COUNT 287 K/uL (182-369)
[2025-03-16] MEDS ORDERED: ASPIRIN 81 MG CHEW PO ONE (00:15)
[2025-03-16] MEDS ORDERED: KETOROLAC TROMETHAMINE 30 MG/ML VIAL IV ONE (00:30)
[2025-03-16 00:32] LABS: ALBUMIN 3.4 g/dL (3.4-5.0); ALBUMIN/GLOBULIN RATIO 0.85 (1.1-2.4); ANION GAP 13.2 (7-21); BILIRUBIN, TOTAL 0.4 mg/dL (0.2-1.0); BUN/CREATININE RATIO 9.57 (6.0-28.6); CALCIUM 8.3 mg/dL (8.5-10.1); CREATININE, SERUM 0.94 mg/dL (0.55-1.02); MAGNESIUM 1.8 mg/dL (1.8-2.4); POTASSIUM 3.2 mmol/L (3.5-5.1); PROTEIN, TOTAL 7.4 g/dL (6.4-8.2)
[2025-03-16] MEDS ORDERED: METHOCARBAMOL750 MG PO (00:50)
[2025-03-16] MEDS ORDERED: IBU800 MG PO (00:50)
[2025-03-16] MEDS ORDERED: CYCLOBENZAPRINE HCL 10 MG HOME.PACK PO ONE (01:00)
[2025-03-16 01:05] VITALS: BP 143/89
--- NOTE | 2025-03-16 14:14 | EKG ---
[facility] [address] [facility] [place], [place] [address] Signed Sinus tachycardia Nonspecific ST and T wave abnormality Abnormal ECG When compared with ECG of 14-FEB-2025 12:28, No significant change was found Confirmed by Carlos Enrique Champion MD ([id number]) on 03/16/2025 2:14:43 PM Electronically Signed By: CARLOS ENRIQUE CHAMPION MD 03/16/25 1414 PATIENT NAME: MARK LEYVA Electrocardiogram DATE OF : [birth year] PHYSICIAN: CARLOS ENRIQUE CHAMPION MD REPORT #: [id number] REPORT IS CONFIDENTIAL AND NOT TO BE RELEASED WITHOUT AUTHORIZATION
== END 2025-03-16 01:06 | disposition home or self-care (01) ==
LOC: ED 23:50
PROVIDERS: Internal Medicine
DX: R07.89 Other chest pain (principal); M62.838 Other muscle spasm; F43.10 Post-traumatic stress disorder, unspecified; Z79.899 Other long term (current) drug therapy; Z88.0 Allergy status to penicillin; Z91.040 Latex allergy status; Z87.891 Personal history of nicotine dependence
CPT/HCPCS: 36415; 71045; 80053; 83735; 83880; 84484; 85025; 85379; 93005; 93010; 96374; 99285-25; A9270; J1885

== ENCOUNTER 2025-04-24 00:56 | Emergency (ER) | payer OTHER ==
[~2025-04-24] VITALS: Ht 167.6 cm; Wt 143.0 kg
[~2025-04-24 00:56] MED LIST changes: +IBU800 MG PO
[2025-04-24] MEDS ORDERED: KETOROLAC TROMETHAMINE 60 MG/2 ML VIAL IM ONE (01:30)
[2025-04-24 02:05] VITALS: BP 141/107
== END 2025-04-24 02:08 | disposition home or self-care (01) ==
LOC: ED 00:56
DX: M48.02 Spinal stenosis, cervical region (principal); M54.12 Radiculopathy, cervical region; Z87.891 Personal history of nicotine dependence; Z88.0 Allergy status to penicillin; Z91.040 Latex allergy status; Z79.899 Other long term (current) drug therapy
CPT/HCPCS: 96372; 99283; J1885